=== PATIENT | male | born 1930 | race Caucasian/White ===

== ENCOUNTER 2017-11-05 08:28 | Day surgery (SDC) | payer MEDICARE ==
[~2017-11-05] VITALS: Ht 170.2 cm; Wt 74.4 kg
[2017-11-05] MEDS ORDERED: normal saline 1000ml 1,000 ML IV PRN (08:55)
[2017-11-05 09:10] VITALS: BP 111/55
[2017-11-05 09:33] LABS: BASOPHILS % (AUTO) 0.6 % (0-1); EOSINOPHILS # (AUTO) 0.3 X10'3 (0-0.9); EOSINOPHILS % (AUTO) 4.3 % (0-6); HEMATOCRIT 22.9 % (42.0-52.0); HEMOGLOBIN 7.6 g/dl (14.0-17.9); LYMPHOCYTES # (AUTO) 1.7 X10'3 (1.1-4.8); LYMPHOCYTES % (AUTO) 23.6 % (21-51); MEAN CORPUSCULAR HEMOGLOBIN 32.9 PG (27.0-31.0); MEAN CORPUSCULAR VOLUME 99.8 FL (78-98); MEAN PLATELET VOLUME 8.1 FL (7.4-10.4); MONOCYTES # (AUTO) 0.5 X10'3 (0-0.9); MONOCYTES % (AUTO) 7.3 % (2-12); NEUTROPHILS # (AUTO) 4.7 X10'3 (1.8-7.7); NEUTROPHILS % (AUTO) 64.2 % (42-75); PLATELET COUNT 235 X10'3 (140-440); RED BLOOD COUNT 2.29 X10'6 (4.70-6.10); RED CELL DISTRIBUTION WIDTH 22.6 % (11.5-14.5); WHITE BLOOD COUNT 7.3 X10'3 (4.5-11.0)
[2017-11-05 09:50] VITALS: BP 111/55
[2017-11-05 10:11] LABS: ANISOCYTOSIS 3+; ELLIPTOCYTES 1+; PLATELET ESTIMATE NORMAL; POIKILOCYTOSIS 1+
[2017-11-05 10:12] LABS: TEAR DROP CELLS FEW
[2017-11-05 10:13] LABS: POLYCHROMASIA FEW
[2017-11-05 10:16] LABS: INR 1.1 INR; PROTHROMBIN TIME 11.3 SECONDS (9.0-12.0)
[2017-11-05 10:17] LABS: ALBUMIN 2.7 G/DL (3.4-5.0); ANION GAP 22 (8-16); BLOOD UREA NITROGEN 97 MG/DL (7-18); BUN/CREATININE RATIO 9.6 (5.4-32.0); CALCIUM 7.2 MG/DL (8.5-10.1); CHLORIDE 109 MMOL/L (99-107); CREATININE 10.14 MG/DL (0.60-1.10); GLUCOSE 91 MG/DL (70-104); POTASSIUM 3.6 MMOL/L (3.5-5.1); SODIUM 143 MMOL/L (135-145); eGFR 5 ML/MIN
[2017-11-05 10:18] LABS: TOTAL CARBON DIOXIDE 12.5 MMOL/L (24-32)
[2017-11-05] MEDS ORDERED: FLO0.4C PO (10:25)
[2017-11-05] MEDS ORDERED: TRIA15CR61 TP (10:26)
[2017-11-05] MEDS ORDERED: SEVE800T8 PO (10:27)
[2017-11-05] MEDS ORDERED: OXYB5TAB11 PO (10:28)
[2017-11-05] MEDS ORDERED: ALFU10TA10 PO (10:29)
[2017-11-05] MEDS ORDERED: fentaNYL/PF 50MCG/1 ML 2ML syringe ONE (11:38)
[2017-11-05] MEDS ORDERED: midazolam 2 mg/2 ml injection ONE (11:38)
[2017-11-05] MEDS ORDERED: LIDOcaine 1%/PF 5ML 10 MG/ML VIAL ONE (11:38)
[2017-11-05] MEDS ORDERED: heparin 1,000unit/ml 10ml vial 10 ML ONE (11:38)
[2017-11-05 12:25] VITALS: BP 108/57
[2017-11-05 12:45] VITALS: BP 118/62
[2017-11-05 13:00] VITALS: BP 122/63
[2017-11-05 13:30] VITALS: BP 132/66
== END 2017-11-05 13:45 | disposition home or self-care (01) ==
LOC: SSTAY O 08:28
PROVIDERS: ATTEND Radiology Diagnostic Radiology
DX: I12.0 Hypertensive chronic kidney disease with stage 5 chronic kidney disease or end stage renal disease (principal); N18.6 End stage renal disease; Z87.891 Personal history of nicotine dependence; Z98.890 Other specified postprocedural states; Z79.899 Other long term (current) drug therapy
CPT/HCPCS: 36415; 36558; 76937; 77001; 80048; 85025; 85610; 99152; 99153; A9270; C1750; C1894; J1644; J2001; J2250; J3010; J7030

== ENCOUNTER 2018-09-19 08:29 | Day surgery (SDC) | payer OTHER ==
[~2018-09-19] VITALS: Ht 170.2 cm; Wt 76.0 kg
[~2018-09-19 08:29] MED LIST: ALFU10TA10 PO; FLO0.4C PO; OXYB5TAB11 PO; SEVE800T8 PO; TRIA15CR61 TP
[2018-09-19] MEDS ORDERED: normal saline 1000ml 1,000 ML IV PRN (09:05)
[2018-09-19] MEDS ORDERED: CYAN250014 PO (09:13)
[2018-09-19] MEDS ORDERED: B1 PO (09:13)
[2018-09-19] MEDS ORDERED: ASCO500C15 PO (09:13)
[2018-09-19] MEDS ORDERED: MULT-1085 PO (09:13)
[2018-09-19] MEDS ORDERED: ACET-812 PO (09:13)
[2018-09-19 09:23] VITALS: BP 89/63
[2018-09-19 09:41] LABS: BASOPHILS # (AUTO) 0.1 X10'3 (0-0.2); BASOPHILS % (AUTO) 1.2 % (0-1); EOSINOPHILS # (AUTO) 0.3 X10'3 (0-0.9); EOSINOPHILS % (AUTO) 3.5 % (0-6); HEMATOCRIT 32.9 % (42.0-52.0); HEMOGLOBIN 11.1 g/dl (14.0-17.9); LYMPHOCYTES # (AUTO) 1.8 X10'3 (1.1-4.8); LYMPHOCYTES % (AUTO) 21.8 % (21-51); MEAN CORPUSCULAR HEMOGLOBIN 38.5 PG (27.0-31.0); MEAN CORPUSCULAR HGB CONC 33.7 g/dL (33.0-36.5); MEAN CORPUSCULAR VOLUME 114.1 FL (78-98); MEAN PLATELET VOLUME 7.5 FL (7.4-10.4); MONOCYTES # (AUTO) 0.9 X10'3 (0-0.9); MONOCYTES % (AUTO) 10.9 % (2-12); NEUTROPHILS # (AUTO) 5.3 X10'3 (1.8-7.7); NEUTROPHILS % (AUTO) 62.6 % (42-75); PLATELET COUNT 193 X10'3 (140-440); RED BLOOD COUNT 2.88 X10'6 (4.70-6.10); RED CELL DISTRIBUTION WIDTH 17.9 % (11.5-14.5); WHITE BLOOD COUNT 8.4 X10'3 (4.5-11.0)
[2018-09-19] MEDS ORDERED: fentaNYL/PF 50MCG/1 ML 2ML syringe ONE (10:00)
[2018-09-19] MEDS ORDERED: heparin 1,000 UNITS/NS 500ml 500 ML ONE (10:00)
[2018-09-19] MEDS ORDERED: iohexol 300mg/ml 100ml inj. ONE (10:00)
[2018-09-19] MEDS ORDERED: midazolam 2 mg/2 ml injection ONE (10:00)
[2018-09-19] MEDS ORDERED: LIDOcaine 1%/PF 5ML 10 MG/ML VIAL ONE (10:00)
[2018-09-19 10:01] LABS: ALBUMIN 3.6 G/DL (3.4-5.0); ANION GAP 12 (8-16); BLOOD UREA NITROGEN 56 MG/DL (7-18); BUN/CREATININE RATIO 6.7 (5.4-32.0); CALCIUM 8.6 MG/DL (8.5-10.1); CHLORIDE 100 MMOL/L (99-107); CREATININE 8.34 MG/DL (0.60-1.10); GLUCOSE 98 MG/DL (70-104); SODIUM 140 MMOL/L (135-145); TOTAL CARBON DIOXIDE 27.9 MMOL/L (24-32); eGFR 6 ML/MIN
[2018-09-19] MEDS ORDERED: LIDOcaine 1%/PF 5ML 10 MG/ML VIAL SQ ONE (10:10)
[2018-09-19] MEDS ORDERED: midazolam 2 mg/2 ml injection IV PRN (10:10)
[2018-09-19] MEDS ORDERED: fentaNYL/PF 50MCG/1 ML 2ML syringe IV PRN (10:10)
[2018-09-19 11:47] VITALS: BP 118/65
[2018-09-19 12:00] VITALS: BP 147/60
[2018-09-19 12:15] VITALS: BP 117/58
[2018-09-19 12:30] VITALS: BP 114/53
[2018-09-19 12:45] VITALS: BP 133/38
== END 2018-09-19 13:05 | disposition home or self-care (01) ==
LOC: SSTAY O 08:29
PROVIDERS: ATTEND Radiology Diagnostic Radiology
DX: T82.858A Stenosis of other vascular prosthetic devices, implants and grafts, initial encounter (principal); Y83.8 Other surgical procedures as the cause of abnormal reaction of the patient, or of later complication, without mention of misadventure at the time of the procedure; N18.6 End stage renal disease; Z79.899 Other long term (current) drug therapy
CPT/HCPCS: 36415; 36902; 76937; 80048; 85025; C1725; C1769; C1894; J1644; J2250; J3010; J7030; Q9967

== ENCOUNTER 2018-10-07 10:52 | Day surgery (SDC) | payer OTHER ==
[~2018-10-07] VITALS: Ht 160 cm; Wt 78.5 kg
[~2018-10-07 10:52] MED LIST changes: +ACET-812 PO; -ALFU10TA10 PO; +ASCO500C15 PO; +B1 PO; +CYAN250014 PO; +MULT-1085 PO; -OXYB5TAB11 PO; -SEVE800T8 PO; -TRIA15CR61 TP
[2018-10-07 11:17] VITALS: BP 102/62
[2018-10-07] MEDS ORDERED: normal saline 1000ml 1,000 ML IV PRN (11:25)
[2018-10-07 11:44] LABS: BASOPHILS # (AUTO) 0.1 X10'3 (0-0.2); BASOPHILS % (AUTO) 1.2 % (0-1); EOSINOPHILS # (AUTO) 0.2 X10'3 (0-0.9); EOSINOPHILS % (AUTO) 3.7 % (0-6); HEMOGLOBIN 10.4 g/dl (14.0-17.9); LYMPHOCYTES # (AUTO) 1.7 X10'3 (1.1-4.8); LYMPHOCYTES % (AUTO) 25.1 % (21-51); MEAN CORPUSCULAR HEMOGLOBIN 39.4 PG (27.0-31.0); MEAN CORPUSCULAR HGB CONC 34.7 g/dL (33.0-36.5); MEAN CORPUSCULAR VOLUME 113.4 FL (78-98); MEAN PLATELET VOLUME 7.6 FL (7.4-10.4); MONOCYTES # (AUTO) 0.7 X10'3 (0-0.9); MONOCYTES % (AUTO) 10.3 % (2-12); NEUTROPHILS % (AUTO) 59.7 % (42-75); PLATELET COUNT 166 X10'3 (140-440); RED BLOOD COUNT 2.64 X10'6 (4.70-6.10); RED CELL DISTRIBUTION WIDTH 17.6 % (11.5-14.5); WHITE BLOOD COUNT 6.6 X10'3 (4.5-11.0)
[2018-10-07 11:53] LABS: ALBUMIN 3.4 G/DL (3.4-5.0); ANION GAP 10 (8-16); BLOOD UREA NITROGEN 39 MG/DL (7-18); BUN/CREATININE RATIO 6.4 (5.4-32.0); CALCIUM 8.5 MG/DL (8.5-10.1); CHLORIDE 100 MMOL/L (99-107); CREATININE 6.13 MG/DL (0.60-1.10); GLUCOSE 91 MG/DL (70-104); POTASSIUM 4.6 MMOL/L (3.5-5.1); SODIUM 141 MMOL/L (135-145); TOTAL CARBON DIOXIDE 31.4 MMOL/L (24-32); eGFR 9 ML/MIN
[2018-10-07] MEDS ORDERED: NAPR-917 PO (12:01)
[2018-10-07] MEDS ORDERED: TURM1POW PO (12:01)
[2018-10-07] MEDS ORDERED: FOLI0.8T7 PO (12:01)
[2018-10-07] MEDS ORDERED: PHO667C PO (12:01)
[2018-10-07] MEDS ORDERED: DOCU-148 PO (12:01)
[2018-10-07] MEDS ORDERED: SEVE800T8 PO (12:01)
[2018-10-07] MEDS ORDERED: HYDR-3964 PO (12:01)
[2018-10-07] MEDS ORDERED: midazolam 2 mg/2 ml injection IV PRN (13:25)
[2018-10-07] MEDS ORDERED: LIDOcaine 1%/PF 5ML 10 MG/ML VIAL SQ ONE (13:25)
[2018-10-07] MEDS ORDERED: heparin 1,000 UNITS/NS 500ml 500 ML ICATH ONE (13:25)
[2018-10-07] MEDS ORDERED: fentaNYL/PF 50MCG/1 ML 2ML syringe IV PRN (13:25)
[2018-10-07] MEDS ORDERED: LIDOcaine 1%/PF 5ML 10 MG/ML VIAL ONE (13:36)
[2018-10-07] MEDS ORDERED: fentaNYL/PF 50MCG/1 ML 2ML syringe ONE (13:36)
[2018-10-07] MEDS ORDERED: midazolam 2 mg/2 ml injection ONE (13:36)
[2018-10-07] MEDS ORDERED: heparin 1,000 UNITS/NS 500ml 500 ML ONE (13:37)
[2018-10-07] MEDS ORDERED: iohexol 300mg/ml 100ml inj. ONE (13:37)
[2018-10-07 15:30] VITALS: BP 110/64
[2018-10-07] MEDS ORDERED: normal saline 1000ml 1,000 ML IV SCH (15:37)
[2018-10-07 15:45] VITALS: BP 110/64
[2018-10-07 16:00] VITALS: BP 110/64
== END 2018-10-07 16:25 | disposition home or self-care (01) ==
LOC: SSTAY O 10:52
PROVIDERS: ATTEND Radiology Vascular & Interventional Radiology
DX: T82.858A Stenosis of other vascular prosthetic devices, implants and grafts, initial encounter (principal); Y83.8 Other surgical procedures as the cause of abnormal reaction of the patient, or of later complication, without mention of misadventure at the time of the procedure; N18.6 End stage renal disease; Z79.899 Other long term (current) drug therapy
CPT/HCPCS: 36415; 36902; 80048; 85025; 99152; 99153; C1725; C1769; C1894; J1644; J2250; J3010; J7030; Q9967

== ENCOUNTER 2019-09-29 04:01 | Emergency (ER) | payer OTHER, MEDICARE ==
[~2019-09-29] VITALS: Ht 172.7 cm; Wt 75.0 kg
[~2019-09-29 04:01] MED LIST changes: -ACET-812 PO; +DOCU-148 PO; +FOLI0.8T7 PO; +HYDR-3964 PO; -MULT-1085 PO; +NAPR-917 PO; +PHO667C PO; +SEVE800T8 PO; +TURM1POW PO
[2019-09-29] MEDS ORDERED: LIDOcaine 2% 10ml TOPICAL JELLY (Urojet) MM ONE (04:10)
[2019-09-29 05:20] VITALS: BP 148/83
== END 2019-09-29 05:29 | disposition home or self-care (01) ==
LOC: ER 04:02
DX: K59.00 Constipation, unspecified (principal); Z79.899 Other long term (current) drug therapy
CPT/HCPCS: 99284

== ENCOUNTER 2019-10-05 11:13 | Emergency (ER) | payer OTHER, MEDICARE ==
[~2019-10-05] VITALS: Ht 170.2 cm; Wt 70.5 kg
[2019-10-05] MEDS ORDERED: METH12DI SUBCUT (12:02)
[2019-10-05] MEDS ORDERED: docusate sodium 100mg/10ml UD cup PO ONE (12:10)
[2019-10-05] MEDS ORDERED: docusate sodium 100mg/10ml UD cup PO SCH (12:10)
[2019-10-05 12:19] LABS: EOSINOPHILS # (AUTO) 0.2 X10'3 (0-0.9); HEMOGLOBIN 10.7 g/dl (14.0-17.9); MONOCYTES # (AUTO) 0.7 X10'3 (0-0.9)
[2019-10-05 12:21] LABS: BASOPHILS # (AUTO) 0.1 X10'3 (0-0.2); BASOPHILS % (AUTO) 1.4 % (0-1); EOSINOPHILS % (AUTO) 3.2 % (0-6); HEMATOCRIT 32.3 % (42.0-52.0); LYMPHOCYTES # (AUTO) 1.3 X10'3 (1.1-4.8); LYMPHOCYTES % (AUTO) 17.6 % (21-51); MEAN CORPUSCULAR HEMOGLOBIN 36.1 PG (27.0-31.0); MEAN CORPUSCULAR HGB CONC 33.2 g/dL (33.0-36.5); MEAN CORPUSCULAR VOLUME 108.8 FL (78-98); MEAN PLATELET VOLUME 8.3 FL (7.4-10.4); MONOCYTES % (AUTO) 9.4 % (2-12); NEUTROPHILS # (AUTO) 4.9 X10'3 (1.8-7.7); NEUTROPHILS % (AUTO) 68.4 % (42-75); PLATELET COUNT 162 X10'3 (140-440); RED BLOOD COUNT 2.97 X10'6 (4.70-6.10); RED CELL DISTRIBUTION WIDTH 18.5 % (11.5-14.5); WHITE BLOOD COUNT 7.2 X10'3 (4.5-11.0)
[2019-10-05 12:28] LABS: ALBUMIN 3.1 G/DL (3.4-5.0); ANION GAP 6 (8-16); BLOOD UREA NITROGEN 44 MG/DL (7-18); BUN/CREATININE RATIO 6.4 (5.4-32.0); CALCIUM 9.1 MG/DL (8.5-10.1); CHLORIDE 100 MMOL/L (99-107); CREATININE 6.84 MG/DL (0.60-1.10); GLUCOSE 96 MG/DL (70-104); POTASSIUM 3.7 MMOL/L (3.5-5.1); SODIUM 135 MMOL/L (135-145); TOTAL CARBON DIOXIDE 29.5 MMOL/L (24-32); eGFR 8 ML/MIN
[2019-10-05 14:27] VITALS: BP 153/88
--- NOTE | 2019-10-07 09:29 | NUR ---
pt suzan smallwood called wanting to speak with linda CHACKO about dc medication relistor. 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 advised pt linda chacko is not available and to peak with database programmer analyst to consult about if medication is ok to take. will pass message to Linda chacko.
== END 2019-10-05 14:30 | disposition home or self-care (01) ==
LOC: ER 11:15
DX: K59.00 Constipation, unspecified (principal); M54.9 Dorsalgia, unspecified; G89.29 Other chronic pain; Z79.899 Other long term (current) drug therapy
CPT/HCPCS: 36415; 74018; 80048; 85025; 99284